=== PATIENT | male | born 1965 | race Caucasian/White ===

== ENCOUNTER → 2020-12-30 | Outpatient (CLI) | payer BC ==
[~2020-12-30] MED LIST: AZULFIDINE 500500 MG PO; ECOTRIN81 MG PO; ELAVIL 10 MG TA10 MG PO; FOLIC ACID 1 MG1 MG PO; IMDUR ER TAB 3030 MG PO; LIPITOR40 MG PO; LOPRESSOR 25 MG25 MG PO; METHOTREXATE T2.5 MG PO; NITROSTAT0.4 MG SL; PLAQUENIL200 MG PO; PLAVIX75 MG PO; PREDNISONE 5 MG5 MG PO; PROTONIX 40 MG40 M1 PO; RANEXA500 MG PO; ZANTAC 150 MG150 MG PO; ZESTRIL2.5 MG PO
== END ==
LOC: HEART 5 12-23 07:30
DX: Z48.812 Encounter for surgical aftercare following surgery on the circulatory system (principal); Z98.61 Coronary angioplasty status
CPT/HCPCS: 78452; A9502; J2785